=== PATIENT | female | born 1960 | race Caucasian/White ===

== ENCOUNTER 2019-03-08 04:10 | Observation (INO) | payer BC ==
[2019-03-08 04:52] LABS: #Basophils 0.1 thou/uL (0.0-0.2); #Eosinphils 0.2 thou/uL (0.0-0.7); #Lymphocytes 2.5 thou/uL (1.20-3.40); #Monocytes 0.3 thou/uL (0.11-0.59); #Neutrophils 2.5 thou/uL (1.40-6.50); %Basophils 1.3 % (0.0-1.0); %Eosinophils 3.4 % (0.0-10.0); %Lymphocytes 44.1 % (21.0-51.0); %Monocytes 5.8 % (0.0-10.0); %Neutrophils 45.4 % (42.0-75.0); Hemoglobin 12.5 g/dL (12.0-16.0); Mean Corpuscular HGB CONC 33.7 g/dL (32.0-36.0); Mean Corpuscular Hemoglobin 31.8 pg (27.0-31.0); Mean Corpuscular Volume 94.2 fL (78.0-98.0); Mean Platelet Volume 8.3 fL (7.4-10.4); Platelet Count 254 thou/uL (130-400); RBC Distribution Width 11.7 % (11.5-14.5); Red Blood Cell (RBC) Count 3.94 mill/uL (4.20-5.40); White Blood Cell (WBC) Count 5.6 thou/uL (4.8-10.8)
[2019-03-08] MEDS ORDERED: Morphine 2 MG/ML SYRINGE ONE (05:01)
[2019-03-08] MEDS ORDERED: Nitroglycerin 2% Ointment 1 INCH/1 GM Packet ONE (05:01)
[2019-03-08] MEDS ORDERED: Aspirin Chewable 81 MG TAB ONE (05:01)
[2019-03-08 05:05] LABS: ALT (SGPT) 45 U/L (8-55); AST (SGOT) 101 U/L (5-34); Albumin 3.6 g/dL (3.5-5.0); Alkaline Phosphatase 81 U/L (40-150); Anion Gap 12 mmol/L (10-20); BUN (Urea Nitrogen) 15 mg/dL (9.8-20.1); Bilirubin, Total 0.4 mg/dL (0.2-1.2); CK (CPK) 144 U/L (29-168); Calc. Creatinine Clearance 0 mL/min (70-130); Calcium 8.8 mg/dL (7.8-10.44); Carbon Dioxide 23 mmol/L (22-29); Chloride 108 mmol/L (98-107); Estimated GFR-MDRD 66; Globulin 2.5 g/dL (2.4-3.5); Glucose 113 mg/dL (70-105); Potassium 3.4 mmol/L (3.5-5.1); Protein, Total 6.1 g/dL (6.0-8.3); Sodium 140 mmol/L (136-145)
[2019-03-08 05:15] LABS: Magnesium 2.1 mg/dL (1.6-2.6)
--- NOTE | 2019-03-08 08:00 | RAD ---
CHEST 1 VIEW: Date: 03/08/19 INDICATION: Chest pain. COMPARISON: None. FINDINGS: Lungs are clear. Heart size is normal. There is postsurgical change of a distal right clavicle excisi on. No acute osseous abnormality is evident. IMPRESSION: No acute cardiopulmonary abnormality. POS: [facility]
[2019-03-08] MEDS ORDERED: Morphine 4 MG/ML VIAL SLOW IVP PRN (08:23)
[2019-03-08 08:38] LABS: Troponin I Less than 0.010 ng/mL (< 0.028)
[2019-03-08 08:42] VITALS: BMI 35.4
[2019-03-08] MEDS ORDERED: ADENOSINE 60 MG/20 ML VIAL ONE (11:03)
[2019-03-08 11:11] LABS: Troponin I Less than 0.010 ng/mL (< 0.028)
[2019-03-08] MEDS ORDERED: Acetaminophen 325 MG TAB PO PRN (11:20)
--- NOTE | 2019-03-08 12:35 | HP ---
CHIEF COMPLAINT: Chest pain. HISTORY OF PRESENT ILLNESS: Ms. Nicholson is a very pleasant 59-year-old female with past medical history significant for hypertension, hyperlipidemia, and family history of coronary artery disease, who presented to the hospital via EMS with complaints of chest pain that began around 2:00 am this morning. The patient states that she noticed some substernal chest discomfort that radiated toward her back. She describes it both as a pressure and a tightness. Associated symptoms included shortness of breath and some mild nausea. At first she thought it may have been a pulled muscle, but her symptoms continued without relief regardless of any type of new position she tried. She woke up her roommate, and EMS was called. When EMS arrived, they gave her four baby aspirin along with three sublingual nitroglycerin sprays. The patient states that her chest pain began to subside after the 3rd spray of sublingual nitroglycerin. On arrival, her EKG showed sinus rhythm. No acute ST or T-wave changes noted. Her initial troponin was negative. Her D-dimer was negative, and chest x-ray showed no acute cardiopulmonary abnormality. The patient reports that she had a cardiac workup sometime in the distant past. She was experiencing some type of tachyarrhythmia, and was put on metoprolol by Dr. Curry. She has had no recent problems with this. She denies any palpitations. She did have a stress test many years ago at the time of this diagnosis, but has not followed up with Dr. Curry recently. REVIEW OF SYSTEMS: The 12-point review of systems performed and is negative except that stated above. PAST MEDICAL HISTORY: Hypertension, hyperlipidemia, history of breast cancer, status post bilateral mastectomy. SOCIAL HISTORY: The patient has never been a smoker. She denies any alcohol or illicit drug use. 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 SURGICAL HISTORY: Bilateral mastectomy as mentioned above. FAMILY HISTORY: Positive for GA and stroke in her father, as well as positive for coronary artery disease in a paternal grandfather. ALLERGIES: NO KNOWN DRUG ALLERGIES. HOME MEDICATIONS: 1. Bupropion 150 mg tablet daily. 2. Metoprolol succinate 50 mg tablet daily. 3. Simvastatin 20 mg p.o. at bedtime. 4. Venlafaxine 75 mg p.o. daily. PHYSICAL EXAMINATION: VITAL SIGNS: Blood pressure 109/92, O2 saturation is 94% on room air, pulse is 74, temp is 97.5. GENERAL: The patient is a moderately obese female, resting comfortably in bed, in no acute distress. HEENT: Head, atraumatic, normocephalic. Mucous membranes are moist. NECK: Supple. No lymphadenopathy. No JVD. No carotid bruits. CV: S1 and S2. Regular rate and rhythm. No appreciable murmurs, rubs, or gallops. LUNGS: Regular respiratory rate and pattern. Clear to auscultation bilaterally. MUSCULOSKELETAL: No joint effusions or swelling, the patient is post surgical mastectomy. ABDOMEN: Positive bowel sounds, soft, mildly obese, nontender. EXTREMITIES: No edema. SKIN: Warm and dry. No rashes or abrasions or discolorations. NEUROLOGIC: Cranial nerves 2 through 12 intact. The patient is nonfocal. LABORATORY DATA: White blood cell count 5.6, hemoglobin 12.5, hematocrit 37.1, platelet count is 254. D-dimer 0.36. Sodium 140, potassium 3.4, chloride 108, creatinine 0.87, glucose 113, AST 101, ALT 45, alkaline phosphatase 81. Troponin was negative. ASSESSMENT: 1. Chest pain, typical and atypical features in a patient with multiple risk factors. 2. Hypertension. 3. Hyperlipidemia. 4. Family history of coronary artery disease. 5. History of breast cancer, in remission. 6. Anxiety and depression. 7. 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 8. Elevated AST. PLAN: At this time we will continue serial cardiac enzymes to rule out ACS. Given her multiple risk factors for coronary artery disease, we will go ahead and perform a nuclear stress test this hospitalization. Further recommendations based on findings of noninvasive testing. Regarding elevated AST, will recheck; patient was recently started back on statin, and this could be related. Job ID: [id number] [facility]
--- NOTE | 2019-03-08 13:44 | NM ---
CARDIAC SPECT: HISTORY: A 59-year-old female with chest pain, hypertension, dyslipidemia, and family history of coronary dise ase. TECHNIQUE: A myocardial perfusion scan was performed using the single-isotope 1-day protocol with Technetium 99m sestamibi. Nine mCi were injected for the rest exam followed by 32 mCi for the stress study. [employer] stress with adenosine was monitored and interpreted by Dr. Nava. FINDINGS: Homogeneous tracer distribution is seen in the myocardial segments on stress and rest images without fixed or reversible defects. GATED SPECT LVEF: 64%. WALL MOTION EXAM: Normal. IMPRESSION: Normal myocardial perfusion scan. POS: [facility]
[2019-03-08 16:28] VITALS: BP 144/71; TEMP 97.5
[2019-03-08] MEDS ORDERED: Ketorolac Tromethamine 30 MG/ML VIAL IVP SCH (16:30)
[2019-03-08] MEDS ORDERED: Simvastatin 20 MG TAB PO SCH (21:00)
--- NOTE | 2019-03-09 01:40 | DIS ---
DATE OF ADMISSION: 03/08/2019 DATE OF DISCHARGE: 03/08/2019 ADMITTING DIAGNOSIS: Chest pain. DISCHARGE DIAGNOSES: 1. Chest pain, resolved, acute coronary syndrome ruled out, nuclear stress test negative for reversible ischemia. 2. Hypertension. 3. Hyperlipidemia. 4. History of breast cancer, status post bilateral mastectomy in remission. 5. Anxiety and depression. CONDITION AT DISCHARGE: Stable. HOSPITAL COURSE: The patient was admitted with chest pain that was partially relieved with nitroglycerin. She was admitted for ACS rule out. Her nuclear stress test was negative for reversible ischemia, and her chest pain completely resolved with IV Toradol. She has ambulated the halls without issue and her chest pain is completely resolved. CONDITION AT DISCHARGE: Stable. DISCHARGE INSTRUCTIONS: The patient will continue aggressive risk factor modification, continue aspirin, statin, and continue to monitor her blood pressure. She will follow up with both her cook starch, Dr. Curry, as well as her primary care physician at [facility]. The patient discharged in good condition. Care of this patient discussed with Dr. Latham who agrees with the above. Job ID: [id number]
[2019-03-09] MEDS ORDERED: Bupropion 150 MG XL TAB PO SCH (09:00)
[2019-03-09] MEDS ORDERED: Venlafaxine HCl XR 75 MG CAP PO SCH (09:00)
== END 2019-03-08 18:47 | disposition home or self-care (01) ==
LOC: ERS 04:10 → 2SW 08:00
PROVIDERS: ADMIT Internal Medicine; ATTEND Internal Medicine
DX: R07.2 Precordial pain (principal); I10 Essential (primary) hypertension; E78.5 Hyperlipidemia, unspecified; F41.9 Anxiety disorder, unspecified; F32.9 Major depressive disorder, single episode, unspecified; Z85.3 Personal history of malignant neoplasm of breast; Z90.13 Acquired absence of bilateral breasts and nipples; Z79.899 Other long term (current) drug therapy
CPT/HCPCS: 36415; 71045; 78452; 80053; 82550; 83690; 83735; 84484; 85025; 85379; 93005; 93017; 94760; 96374; 96376; A9500; G0378; J0153; J1885; J2270